=== PATIENT | female | born 1980 ===

== ENCOUNTER → 2018-07-24 | Day surgery (SDC) | payer OTHER ==
[~2018-07-24] MED LIST: KETO10TA2 PO; NEURONTIN300 MG PO; PERCOCET 5-3251 EACH PO; RECTICARE30 GM TOP
== END | disposition home or self-care (01) ==
LOC: ADM 07-18 14:00 → CIR.AMB 06:15
DX: K64.4 Residual hemorrhoidal skin tags (principal)